=== PATIENT | female | born 1995 | race Caucasian/White ===

== ENCOUNTER 2024-08-21 14:29 | Inpatient (IN) | payer BC ==
[~2024-08-21] VITALS: Ht 165.1 cm; Wt 77.1 kg
[2024-08-21] MEDS ORDERED: HYDROXYZINE (14:38)
[2024-08-21] MEDS ORDERED: PROZAC (14:38)
[2024-08-21] MEDS ORDERED: WELLBUTRIN (14:38)
[2024-08-21 14:56] LABS: BASOPHILS % (AUTO) 0.5 % (0.0-2.0); EOSINOPHILS % (AUTO) 0.3 % (0.0-7.0); HEMOGLOBIN 14.8 g/dL (10.9-14.3); LYMPHOCYTES # (AUTO) 3.5 K/uL (0.8-4.8); LYMPHOCYTES % (AUTO) 52.1 % (20.5-51.5); MEAN CORPUSCULAR HGB CONC 34 g/dL (32.3-35.6); MEAN CORPUSCULAR VOLUME 96.4 fL (75.5-95.3); MONOCYTES # (AUTO) 0.6 K/uL (0.1-1.30); MONOCYTES % (AUTO) 9.4 % (0.0-11.0); NEUTROPHILS # (AUTO) 2.5 K/uL (1.8-8.9); NEUTROPHILS % (AUTO) 37.7 % (38.5-71.5); PLATELET COUNT (AUTO) 324 K/uL (179-408); RED BLOOD CELL COUNT(AUTO) 4.46 MIL/uL (3.63-4.92); RED CELL DISTRIBUTION WIDTH 13.7 % (12.3-17.7); WHITE BLOOD COUNT (AUTO) 6.8 K/uL (3.8-11.8)
[2024-08-21 14:58] LABS: DIFFERENTIAL COMMENT 1
[2024-08-21] MEDS: IV NORMAL SALINE 1000 ML BAG IV ONE (14:58)
[2024-08-21] MEDS: THIAMINE HCL 100 MG TABLET PO ONE (15:00)
[2024-08-21 15:05] LABS: CALCIUM 8.5 mg/dL (8.5-10.1); CARBON DIOXIDE 28 mmol/L (21-32); CHLORIDE 102 mmol/L (98-107); CREATININE 0.5 mg/dL (0.6-1.3); GLUCOSE 92 mg/dL (74-106); POTASSIUM 3.7 mmol/L (3.5-5.1); SODIUM SERUM 142 mmol/L (136-145); UREA NITROGEN, BLOOD 5 mg/dL (7-18)
[2024-08-21 15:11] LABS: ALANINE AMINOTRANSFERASE 37 U/L (14-59); ALBUMIN 3.9 g/dL (3.4-5.0); ALKALINE PHOSPHATASE 54 U/L (50-136); ASPARTATE AMINOTRANSFERASE 35 U/L (15-37); BILIRUBIN,DIRECT 0.2 mg/dL (0.0-0.2); BILIRUBIN,TOTAL 0.4 mg/dL (0.2-1.0); TOTAL PROTEIN, SERUM 8.3 g/dL (6.4-8.2)
[2024-08-21 15:13] LABS: ACETAMINOPHEN < 2.0 ug/mL (10-30)
[2024-08-21 15:23] LABS: ETHANOL 346 MG/DL (0-10)
[2024-08-21 15:33] LABS: LACTIC ACID 2.9 mmol/L (0.4-2.0)
[2024-08-21 19:59] LABS: *BILIRUBIN,URIN NEGATIVE (NEGATIVE); *BLOOD, URINE 2+ (NEGATIVE); *CLARITY,URINE CLEAR (CLEAR); *COLOR,URINE YELLOW (YELLOW); *KETONES,URINE NEGATIVE (NEGATIVE); *PROTEIN,URINE NEGATIVE (NEGATIVE); *UROBILINOGEN,URINE 0.2 E.U./dl (NORMAL); LEUKOCYTE ESTERASE ,URINE NEGATIVE (NEGATIVE); NITRITE, URINE NEGATIVE (NEGATIVE); UGLUCOSE NEGATIVE (NEGATIVE)
[2024-08-21] MEDS ORDERED: LORAZEPAM 2 MG/1 ML VIAL ONE (20:13)
[2024-08-21 20:20] LABS: *AMPHETAMINE, URINE NEGATIVE (NEGATIVE); *BARBITURATE, URINE NEGATIVE (NEGATIVE); *BENZODIAZEPINE, URINE NEGATIVE (NEGATIVE); *CANNABINOID, URINE NEGATIVE (NEGATIVE); *COCCAINE, URINE NEGATIVE (NEGATIVE); *OPIATE, URINE NEGATIVE (NEGATIVE); *PHENCYCLIDINE SCREEN,URINE NEGATIVE (NEGATIVE); FENTANYL, URINE NEGATIVE (NEGATIVE)
[2024-08-21] MEDS: LORAZEPAM 2 MG/1 ML VIAL IV ONE (20:20)
[2024-08-21] MEDS: IV NS 1000 ML 1,000 ML IV ONE ×2 (20:20→21:06)
[2024-08-21 20:25] LABS: BACTERIA,URINE MODERATE /HPF (NONE SEEN); SQUAMOUS EPITHELIAL CELL,UR FEW /HPF (NONE SEEN); WBC,URINE 0-3 /HPF (0-3)
[2024-08-21] MEDS ORDERED: PIPERACILLIN/TAZOBACTAM/D5W 50 ML IV ONE (21:46)
[2024-08-21] MEDS: PIPERACILLIN SODIUM/TAZOBACTAM 3.375 G in IV DEXTROSE 5% 50 ML IV ONE (22:14)
[2024-08-21] MEDS ORDERED: ONDANSETRON 4 MG/2 ML VIAL ONE (22:38)
[2024-08-21] MEDS: ONDANSETRON 4 MG/2 ML VIAL IV ONE (22:44)
[2024-08-22] MEDS ORDERED: LORAZEPAM 0.5 MG TABLET ONE (00:12)
[2024-08-22] MEDS: LORAZEPAM 0.5 MG TABLET PO ONE (00:15)
[2024-08-22] MEDS ORDERED: REMEDY ESSENTIAL ZINC PASTE 113 GM TP PRN (01:45)
[2024-08-22] MEDS ORDERED: MAGNESIUM HYDROXIDE 30 ML LIQUID UDC PO PRN (01:45)
[2024-08-22] MEDS ORDERED: ONDANSETRON 4 MG/2 ML VIAL IV PRN (01:45)
[2024-08-22] MEDS ORDERED: LORAZEPAM 1 MG TABLET ONE (04:20)
[2024-08-22] MEDS: LORAZEPAM 0.5 MG TABLET PO PRN (04:23)
[2024-08-22] MEDS: PIPERACILLIN SODIUM/TAZOBACTAM 3.375 G in IV DEXTROSE 5% 50 ML IV SCH (06:00)
[2024-08-22 06:54] LABS: BASOPHILS # (AUTO) 0.1 K/UL (0.0-0.2); BASOPHILS % (AUTO) 0.3 % (0.0-2.0); HEMATOCRIT 35.7 % (31.2-41.9); HEMOGLOBIN 12.4 g/dL (10.9-14.3); LYMPHOCYTES # (AUTO) 0.7 K/uL (0.8-4.8); LYMPHOCYTES % (AUTO) 3.8 % (20.5-51.5); MEAN CORPUSCULAR HEMOGLOBIN 33.2 uug (24.7-32.8); MEAN CORPUSCULAR HGB CONC 35 g/dL (32.3-35.6); MONOCYTES # (AUTO) 0.8 K/uL (0.1-1.30); MONOCYTES % (AUTO) 4.2 % (0.0-11.0); NEUTROPHILS % (AUTO) 91.7 % (38.5-71.5); PLATELET COUNT (AUTO) 230 K/uL (179-408); RED BLOOD CELL COUNT(AUTO) 3.72 MIL/uL (3.63-4.92); RED CELL DISTRIBUTION WIDTH 13.8 % (12.3-17.7); WHITE BLOOD COUNT (AUTO) 18.5 K/uL (3.8-11.8)
[2024-08-22 07:16] LABS: ALBUMIN 3.4 g/dL (3.4-5.0); BILIRUBIN,DIRECT 0.2 mg/dL (0.0-0.2); BILIRUBIN,TOTAL 1.3 mg/dL (0.2-1.0); CALCIUM 7.7 mg/dL (8.5-10.1); CREATININE 0.9 mg/dL (0.6-1.3); MAGNESIUM 1.4 mg/dL (1.8-2.4); PHOSPHOROUS 2.5 mg/dL (2.5-4.9); POTASSIUM 3.2 mmol/L (3.5-5.1); TOTAL PROTEIN, SERUM 7.2 g/dL (6.4-8.2)
[2024-08-22 07:51] LABS: DIFFERENTIAL COMMENT 1
[2024-08-22 09:52] LABS: THYROID STIMULATING HORMONE 2.44 mIU/mL (0.358-3.740)
[2024-08-22 10:00] VITALS: BP 134/85; TEMP 98.8; O2SAT 99
[2024-08-22] MEDS: IV NS 1000 ML 1,000 ML IV PRN (10:25)
[2024-08-22] MEDS: LORAZEPAM 1 MG TABLET PO PRN (10:29)
[2024-08-22] MEDS: MULTIVITAMINS,THERAPEUTIC TABLET PO SCH (10:29)
[2024-08-22] MEDS: PANTOPRAZOLE SODIUM 40 MG TABLET.DR PO SCH (10:29)
[2024-08-22] MEDS: FOLIC ACID 1 MG TABLET PO SCH (10:29)
[2024-08-22] MEDS: THIAMINE HCL 100 MG TABLET PO SCH (10:29)
[2024-08-22] MEDS: PIPERACILLIN SODIUM/TAZOBACTAM 3.375 G in IV DEXTROSE 5% 100 ML IV SCH (10:46)
[2024-08-22] MEDS ORDERED: BUPR100T5 PO (11:20)
[2024-08-22] MEDS ORDERED: HYDR25CA PO (11:20)
[2024-08-22] MEDS ORDERED: LEVO1TAB20 PO (11:20)
[2024-08-22] MEDS: CHLORDIAZEPOXIDE HCL 25 MG CAPSULE PO SCH (12:12)
[2024-08-22 12:26] VITALS: BP 134/84; TEMP 98; O2SAT 99
[2024-08-22 16:00] VITALS: BP 129/68; TEMP 97.6; O2SAT 98
[2024-08-22 19:35] VITALS: BP 143/90; TEMP 99.5; O2SAT 99
[2024-08-22] MEDS: MAGNESIUM OXIDE 400 MG TABLET PO ONE ×2 (20:46→21:10)
[2024-08-22] MEDS: POTASSIUM CHLORIDE 10 MEQ TAB.PRT.SR PO ONE ×2 (20:46→21:10)
[2024-08-22] MEDS: ACETAMINOPHEN 325 MG TABLET PO PRN (21:24)
[2024-08-23 00:08] VITALS: BP 122/73; TEMP 98.1; O2SAT 99
[2024-08-23 04:15] VITALS: BP 127/81; TEMP 97.8; O2SAT 99
[2024-08-23 06:53] LABS: CALCIUM 8.3 mg/dL (8.5-10.1); CREATININE 0.6 mg/dL (0.6-1.3); MAGNESIUM 2.3 mg/dL (1.8-2.4); PHOSPHOROUS 1.9 mg/dL (2.5-4.9); POTASSIUM 3.4 mmol/L (3.5-5.1)
[2024-08-23 07:00] LABS: BASOPHILS % (AUTO) 0.2 % (0.0-2.0); EOSINOPHILS % (AUTO) 0.2 % (0.0-7.0); HEMATOCRIT 34.1 % (31.2-41.9); HEMOGLOBIN 11.8 g/dL (10.9-14.3); LYMPHOCYTES % (AUTO) 10.5 % (20.5-51.5); MEAN CORPUSCULAR HEMOGLOBIN 33.4 uug (24.7-32.8); MEAN CORPUSCULAR HGB CONC 35 g/dL (32.3-35.6); MEAN CORPUSCULAR VOLUME 96.9 fL (75.5-95.3); MONOCYTES # (AUTO) 0.5 K/uL (0.1-1.30); MONOCYTES % (AUTO) 5.6 % (0.0-11.0); NEUTROPHILS # (AUTO) 7.9 K/uL (1.8-8.9); NEUTROPHILS % (AUTO) 83.5 % (38.5-71.5); PLATELET COUNT (AUTO) 178 K/uL (179-408); RED BLOOD CELL COUNT(AUTO) 3.52 MIL/uL (3.63-4.92); RED CELL DISTRIBUTION WIDTH 13.8 % (12.3-17.7); WHITE BLOOD COUNT (AUTO) 9.5 K/uL (3.8-11.8)
[2024-08-23 07:12] LABS: DIFFERENTIAL COMMENT 1
[2024-08-23 07:51] VITALS: BP 124/77; TEMP 97.7; O2SAT 99
[2024-08-23] MEDS ORDERED: POTASSIUM PHOSPHATE MM 15 MMOL in IV NORMAL SALINE 250 ML IV ONE ×2 (09:00→09:45)
[2024-08-23] MEDS ORDERED: NEUTRA PHOS PACKET PO SCH ×2 (10:00)
[2024-08-23] MEDS: NEUTRA PHOS PACKET PO SCH (10:05)
[2024-08-23] MEDS ORDERED: CHLO25CA22 PO (10:40)
[2024-08-23] MEDS ORDERED: THIA100T13 PO (10:40)
[2024-08-23] MEDS ORDERED: FLUO20CA36 PO (10:40)
== END 2024-08-23 12:45 | disposition home or self-care (01) | DRG 918 ==
LOC: ER 14:29 → TELE3 08-22 09:33 → MEDSURG3 08-23 09:55
PROVIDERS: ADMIT Nurse Practitioner Family; ATTEND Internal Medicine
DX: T43.292A Poisoning by other antidepressants, intentional self-harm, initial encounter (principal); E87.20 Acidosis, unspecified; E87.1 Hypo-osmolality and hyponatremia; F33.2 Major depressive disorder, recurrent severe without psychotic features; F10.232 Alcohol dependence with withdrawal with perceptual disturbance; T51.0X2A Toxic effect of ethanol, intentional self-harm, initial encounter; Y90.8 Blood alcohol level of 240 mg/100 ml or more; Y92.89 Other specified places as the place of occurrence of the external cause; E87.6 Hypokalemia; F41.9 Anxiety disorder, unspecified; F43.12 Post-traumatic stress disorder, chronic; T74.21XS Adult sexual abuse, confirmed, sequela; Y07.59 Other non-family member, perpetrator of maltreatment and neglect; Z81.1 Family history of alcohol abuse and dependence; Z81.8 Family history of other mental and behavioral disorders; F10.229 Alcohol dependence with intoxication, unspecified; R00.0 Tachycardia, unspecified; D72.823 Leukemoid reaction; E83.39 Other disorders of phosphorus metabolism; Z91.51 Personal history of suicidal behavior
CPT/HCPCS: 36415; 83605; 83690; 83735; 84100; 84443; 85025; 87040; A4663; G0378; G0480; J2060; J2405; J2543; J3490; J7040